=== PATIENT | female | born 2005 | race Caucasian/White ===

== ENCOUNTER 2023-10-24 12:14 | Emergency (ER) | payer MEDICAID ==
[~2023-10-24] VITALS: Ht 160 cm; Wt 60.5 kg
[2023-10-24 12:43] VITALS: TEMP 100.6
[2023-10-24 13:20] LABS: BILIRUBIN,URINE NEGATIVE (Neg); CLARITY,URINE CLEAR (Clear); COLOR,URINE YELLOW (Yellow); GLUCOSE, URINE NEGATIVE (Neg); KETONES,URINE 15 mg/dl (Neg); LEUKOCYTE ESTERASE ,URINE NEGATIVE (Neg); NITRITES, URINE NEGATIVE (Neg); OCCULT BLOOD,URINE SMALL (Neg); PROTEIN,URINE NEGATIVE (Neg); UROBILINOGEN,URINE 0.2 E.U/dL (0.2-1.0)
[2023-10-24 13:23] LABS: URINE HCG NEGATIVE (NEG)
[2023-10-24 13:32] LABS: UA COLLECTION TYPE CLN CATCH MIDSTREAM
[2023-10-24 13:33] LABS: BACTERIA,URINE NONE SEEN /HPF (Neg); MUCUS STRANDS FEW /LPF (Neg); RBC,URINE NONE SEEN /HPF (0-2); SQUAMOUS EPITHELIAL CELL,UR FEW /LPF (FEW); WBC,URINE 0-4 /HPF (0-4)
[2023-10-24 13:46] LABS: BASOPHILS % (AUTO) 0.3 % (0-1); EOSINOPHILS % (AUTO) 0.1 % (0-6); HEMATOCRIT 36.1 % (35.0-45.0); HEMOGLOBIN 11.8 g/dl (12.0-16.0); LYMPHOCYTES % (AUTO) 7.6 % (21-51); MEAN CORPUSCULAR HEMOGLOBIN 27.1 PG (27.0-31.0); MEAN CORPUSCULAR HGB CONC 32.6 g/dL (33.0-36.5); MEAN PLATELET VOLUME 7.8 FL (7.4-10.4); MONOCYTES # (AUTO) 0.8 X10'3 (0-0.9); MONOCYTES % (AUTO) 6.1 % (2-12); NEUTROPHILS % (AUTO) 85.9 % (42-75); PLATELET COUNT 270 X10'3 (140-440); RED BLOOD COUNT 4.35 X10'6 (4.20-5.60); RED CELL DISTRIBUTION WIDTH 14.6 % (11.5-14.5); WHITE BLOOD COUNT 12.8 X10'3 (4.5-11.0)
[2023-10-24 13:58] LABS: ALANINE AMINOTRANSFERASE 17 U/L (12-78); ALBUMIN 3.6 G/DL (3.4-5.0); ALBUMIN/GLOBULIN RATIO 0.8 (1.1-1.5); ALKALINE PHOSPHATASE 71 IU/L (20-180); ANION GAP 11 (8-16); ASPARTATE AMINO TRANSFERASE 12 U/L (10-37); BILIRUBIN,TOTAL 0.5 MG/DL (0.1-1.0); BLOOD UREA NITROGEN 8 MG/DL (7-18); BUN/CREATININE RATIO 12.9 (10.0-20.0); CALCIUM 9.2 MG/DL (8.5-10.1); CHLORIDE 105 MMOL/L (99-107); CREATININE 0.62 MG/DL (0.40-0.90); GLUCOSE 93 MG/DL (70-104); LIPASE 29 U/L (16-77); POTASSIUM 3.7 MMOL/L (3.5-5.1); SODIUM 140 MMOL/L (135-145); eCRCL 120 ML/MIN; eGFR > 90 ML/MIN
[2023-10-24] MEDS ORDERED: LIDOcaine 1% W/epiNEPHrine 1:200,000 10ml vial IJ STA (17:05)
[2023-10-24] MEDS: LIDOcaine 1% W/epiNEPHrine 1:100,000 20ml vial SQ ONE (17:36)
[2023-10-24] MEDS ORDERED: iohexol 300mg/ml 100ml inj. ONE (17:52)
[2023-10-24] MEDS: ondansetron/PF 4mg/2ml inj IV ONE (17:55)
[2023-10-24] MEDS: morphine 4 MG/ML inj SYRINge IV ONE (17:56)
[2023-10-24] MEDS: DOXYCYCLINE 100MG CAPSULE PO STA (19:43)
[2023-10-24] MEDS ORDERED: DOXY-1 PO (19:51)
[2023-10-24] MEDS: normal saline 1000ML IV soln IV ONE (19:55)
[2023-10-24] MEDS: CefTRIAXone 2gm/D5W 50ml BAG 50 ML IV ONE (19:59)
[2023-10-24] MEDS: HYDROcodone/acetaminophen 10/325mg tab PO ONE (21:13)
[2023-10-24 21:30] VITALS: BP 111/77; PULSE 92; RESP 18; O2SAT 99
[2023-10-25] MEDS ORDERED: HYDR-3965 PO (22:26)
[2023-10-25] MEDS ORDERED: ONDA-243 PO (22:26)
== END 2023-10-24 21:35 | disposition home or self-care (01) ==
LOC: ER 12:16
DX: L03.311 Cellulitis of abdominal wall (principal); Z79.2 Long term (current) use of antibiotics
CPT/HCPCS: 10060; 36415; 74177; 76857; 80053; 81001; 81025; 83690; 84145; 85025; 96365; 96375; 99285; A6266; J0696; J2270; J2405; J7030; Q9967; A6449

== ENCOUNTER 2023-10-25 21:43 | Emergency (ER) | payer MEDICAID ==
[~2023-10-25] VITALS: Ht 160 cm; Wt 62.0 kg
[~2023-10-25 21:43] MED LIST: DOXY-1 PO
[2023-10-25 22:09] LABS: BASOPHILS % (AUTO) 0.3 % (0-1); EOSINOPHILS % (AUTO) 0.2 % (0-6); HEMATOCRIT 33.5 % (35.0-45.0); HEMOGLOBIN 10.8 g/dl (12.0-16.0); LYMPHOCYTES # (AUTO) 0.7 X10'3 (1.1-4.8); MEAN CORPUSCULAR HEMOGLOBIN 26.5 PG (27.0-31.0); MEAN CORPUSCULAR HGB CONC 32.2 g/dL (33.0-36.5); MEAN CORPUSCULAR VOLUME 82.3 FL (78-98); MEAN PLATELET VOLUME 7.6 FL (7.4-10.4); MONOCYTES # (AUTO) 0.9 X10'3 (0-0.9); MONOCYTES % (AUTO) 5.8 % (2-12); NEUTROPHILS # (AUTO) 13.1 X10'3 (1.8-7.7); NEUTROPHILS % (AUTO) 88.7 % (42-75); PLATELET COUNT 261 X10'3 (140-440); RED BLOOD COUNT 4.08 X10'6 (4.20-5.60); RED CELL DISTRIBUTION WIDTH 14.4 % (11.5-14.5); WHITE BLOOD COUNT 14.7 X10'3 (4.5-11.0)
[2023-10-25 22:24] LABS: ALANINE AMINOTRANSFERASE 16 U/L (12-78); ALBUMIN 3.2 G/DL (3.4-5.0); ALBUMIN/GLOBULIN RATIO 0.8 (1.1-1.5); ALKALINE PHOSPHATASE 64 IU/L (20-180); ANION GAP 7 (8-16); ASPARTATE AMINO TRANSFERASE 15 U/L (10-37); BILIRUBIN,TOTAL 0.3 MG/DL (0.1-1.0); BLOOD UREA NITROGEN 8 MG/DL (7-18); CALCIUM 8.7 MG/DL (8.5-10.1); CHLORIDE 105 MMOL/L (99-107); CREATININE 0.57 MG/DL (0.40-0.90); GLUCOSE 105 MG/DL (70-104); LIPASE 24 U/L (16-77); POTASSIUM 3.5 MMOL/L (3.5-5.1); SODIUM 139 MMOL/L (135-145); TOTAL CARBON DIOXIDE 26.6 MMOL/L (24-32); TOTAL PROTEIN 7.4 G/DL (6.4-8.2); eCRCL 130 ML/MIN; eGFR > 90 ML/MIN
[2023-10-25] MEDS ORDERED: ketorolac trometh 30MG/ML vial 30 MG/ML VIAL IV ONE (22:25)
[2023-10-25] MEDS ORDERED: HYDR-3965 PO (22:26)
[2023-10-25] MEDS ORDERED: ONDA-243 PO (22:26)
[2023-10-25] MEDS: HYDROcodone/acetaminophen 10/325mg tab PO ONE (22:51)
[2023-10-25] MEDS: ondansetron 4mg rapidly disintigrating tab PO ONE (22:52)
[2023-10-25] MEDS: ketorolac trometh 30MG/ML vial 30 MG/ML VIAL IM ONE (23:01)
[2023-10-25 23:14] VITALS: BP 110/72; PULSE 99; RESP 16; TEMP 98.6; O2SAT 98
== END 2023-10-25 23:15 | disposition home or self-care (01) ==
LOC: ER 21:43
DX: N73.2 Unspecified parametritis and pelvic cellulitis (principal); Z79.2 Long term (current) use of antibiotics
CPT/HCPCS: 36415; 80053; 83690; 85025; 96372; 99283; J1885

== ENCOUNTER 2023-10-28 06:45 | Inpatient (IN) | payer MEDICAID ==
[~2023-10-28] VITALS: Ht 160 cm; Wt 51.9 kg
[2023-10-28] VITALS (17 sets, daily range): BP systolic 105–123; BP diastolic 63–87; PULSE 68–93; RESP 14–34; TEMP 97.8–98.5; O2SAT 98–100
[~2023-10-28 06:45] MED LIST changes: +HYDR-3965 PO; +ONDA-243 PO
[2023-10-28] MEDS: ketorolac trometh 30MG/ML vial 30 MG/ML VIAL IV ONE (08:40)
[2023-10-28 08:42] LABS: BASOPHILS # (AUTO) 0.1 X10'3 (0-0.2); BASOPHILS % (AUTO) 0.4 % (0-1); EOSINOPHILS # (AUTO) 0.2 X10'3 (0-0.9); EOSINOPHILS % (AUTO) 1.3 % (0-6); HEMATOCRIT 31.7 % (35.0-45.0); HEMOGLOBIN 10.2 g/dl (12.0-16.0); LYMPHOCYTES % (AUTO) 6.7 % (21-51); MEAN CORPUSCULAR HEMOGLOBIN 26.3 PG (27.0-31.0); MEAN CORPUSCULAR HGB CONC 32.2 g/dL (33.0-36.5); MEAN CORPUSCULAR VOLUME 81.9 FL (78-98); MEAN PLATELET VOLUME 7.6 FL (7.4-10.4); MONOCYTES # (AUTO) 1.1 X10'3 (0-0.9); MONOCYTES % (AUTO) 7.5 % (2-12); NEUTROPHILS # (AUTO) 12.2 X10'3 (1.8-7.7); NEUTROPHILS % (AUTO) 84.1 % (42-75); PLATELET COUNT 288 X10'3 (140-440); RED BLOOD COUNT 3.87 X10'6 (4.20-5.60); RED CELL DISTRIBUTION WIDTH 14.4 % (11.5-14.5); WHITE BLOOD COUNT 14.5 X10'3 (4.5-11.0)
[2023-10-28 09:02] LABS: ALANINE AMINOTRANSFERASE 18 U/L (12-78); ALBUMIN 2.9 G/DL (3.4-5.0); ALBUMIN/GLOBULIN RATIO 0.6 (1.1-1.5); ALKALINE PHOSPHATASE 78 IU/L (20-180); ANION GAP 8 (8-16); ASPARTATE AMINO TRANSFERASE 11 U/L (10-37); BILIRUBIN,TOTAL 0.3 MG/DL (0.1-1.0); BLOOD UREA NITROGEN 7 MG/DL (7-18); BUN/CREATININE RATIO 12.5 (10.0-20.0); CALCIUM 8.6 MG/DL (8.5-10.1); CHLORIDE 105 MMOL/L (99-107); CREATININE 0.56 MG/DL (0.40-0.90); GLUCOSE 91 MG/DL (70-104); POTASSIUM 3.5 MMOL/L (3.5-5.1); SODIUM 141 MMOL/L (135-145); TOTAL CARBON DIOXIDE 27.7 MMOL/L (24-32); TOTAL PROTEIN 7.4 G/DL (6.4-8.2); eCRCL 131 ML/MIN; eGFR > 90 ML/MIN
[2023-10-28 09:32] LABS: BETA HCG,QUANTITATIVE < 1.0 mIU/ml
[2023-10-28] MEDS: acetaminophen 1,000mg/100ml IV 100 ML IV ONE (11:43)
[2023-10-28] MEDS ORDERED: magnesium sulf-water 4G/100mL 100 ML IV PRN (14:30)
[2023-10-28] MEDS ORDERED: ondansetron/PF 4mg/2ml inj IV PRN ×3 (14:30→17:25)
[2023-10-28] MEDS ORDERED: magnesium sulf-water 2g/50mL 50 ML IV PRN (14:30)
[2023-10-28] MEDS ORDERED: potassium Cl 40MEQ/1/2NS 520ml 520 ML IV PRN (14:30)
[2023-10-28] MEDS ORDERED: acetaminophen 325mg tablet PO PRN (14:30)
[2023-10-28] MEDS ORDERED: mag hydrox/Alum hydrox/simeth 30ml oral suspension PO PRN (14:30)
[2023-10-28] MEDS ORDERED: magnesium Cl slow-release 64mg tablet PO PRN (14:30)
[2023-10-28] MEDS ORDERED: potassium Cl 20 mEq SR tablet PO PRN ×2 (14:30)
[2023-10-28] MEDS ORDERED: midazolam 1 mg/ML 2ml injection ONE (16:02)
[2023-10-28] MEDS ORDERED: fentaNYL/PF 50MCG/1 ML 2ML syringe ONE (16:02)
[2023-10-28] MEDS ORDERED: propofol inj 20 ML IV ONE (16:03)
[2023-10-28] MEDS ORDERED: CEFTRIAXONE IV ONE (16:03)
[2023-10-28] MEDS ORDERED: D5W IV ONE (16:03)
[2023-10-28] MEDS ORDERED: naloxone 0.4 mg/ml inj IV PRN (16:45)
[2023-10-28] MEDS ORDERED: meperidine/PF 25mg/ml syringe IV PRN ×2 (17:25)
[2023-10-28] MEDS ORDERED: morphine 4 MG/ML inj SYRINge IV PRN (17:25)
[2023-10-28] MEDS ORDERED: proCHLORperazine 10 MG/2 ml inj IV PRN (17:25)
[2023-10-28] MEDS ORDERED: morphine 2 MG/ML inj. syringe IV PRN (17:25)
[2023-10-28] MEDS: ringers solution, lacted 1,000 ML IV SCH (17:25)
[2023-10-28] MEDS: meperidine/PF 25mg/ml syringe IV PRN (17:31)
[2023-10-28] MEDS: normal saline 1000ml 1,000 ML IV SCH (18:17)
[2023-10-28] MEDS: ketorolac trometh 30MG/ML vial 30 MG/ML VIAL IV PRN (18:18)
[2023-10-28] MEDS: K and/or MAG REPLACEMENT MC SCH (20:00)
[2023-10-28] MEDS: docusate sod 100mg capsule PO SCH (20:20)
[2023-10-28] MEDS: HYDROcodone/acetaminophen 5mg/325mg tablet PO PRN (22:11)
[2023-10-29 02:33] VITALS: BP 99/65; PULSE 84; RESP 14; TEMP 98.8; O2SAT 98
[2023-10-29] MEDS: magnesium hydroxide 30ml (MOM) UD suspension PO PRN (02:50)
[2023-10-29 05:11] LABS: HEMOGLOBIN 8.5 g/dl (12.0-16.0); MEAN CORPUSCULAR VOLUME 81.5 FL (78-98); WHITE BLOOD COUNT 10.2 X10'3 (4.5-11.0)
[2023-10-29 05:12] LABS: BASOPHILS % (AUTO) 0.3 % (0-1); EOSINOPHILS # (AUTO) 0.2 X10'3 (0-0.9); EOSINOPHILS % (AUTO) 1.6 % (0-6); HEMATOCRIT 25.8 % (35.0-45.0); LYMPHOCYTES % (AUTO) 9.6 % (21-51); MEAN CORPUSCULAR HGB CONC 33.1 g/dL (33.0-36.5); MEAN PLATELET VOLUME 7.5 FL (7.4-10.4); MONOCYTES # (AUTO) 0.9 X10'3 (0-0.9); MONOCYTES % (AUTO) 8.5 % (2-12); NEUTROPHILS # (AUTO) 8.2 X10'3 (1.8-7.7); PLATELET COUNT 242 X10'3 (140-440); RED BLOOD COUNT 3.17 X10'6 (4.20-5.60); RED CELL DISTRIBUTION WIDTH 14.1 % (11.5-14.5)
[2023-10-29 05:26] LABS: ALANINE AMINOTRANSFERASE 15 U/L (12-78); ALBUMIN 2.2 G/DL (3.4-5.0); ALBUMIN/GLOBULIN RATIO 0.5 (1.1-1.5); ALKALINE PHOSPHATASE 61 IU/L (20-180); ANION GAP 6 (8-16); ASPARTATE AMINO TRANSFERASE 11 U/L (10-37); BILIRUBIN,TOTAL 0.2 MG/DL (0.1-1.0); BLOOD UREA NITROGEN 8 MG/DL (7-18); BUN/CREATININE RATIO 17.4 (10.0-20.0); CALCIUM 8.1 MG/DL (8.5-10.1); CHLORIDE 107 MMOL/L (99-107); CREATININE 0.46 MG/DL (0.40-0.90); GLUCOSE 86 MG/DL (70-104); MAGNESIUM 2.1 MG/DL (1.5-2.4); POTASSIUM 3.7 MMOL/L (3.5-5.1); SODIUM 139 MMOL/L (135-145); TOTAL CARBON DIOXIDE 25.7 MMOL/L (24-32); TOTAL PROTEIN 6.4 G/DL (6.4-8.2); eCRCL 160 ML/MIN; eGFR > 90 ML/MIN
[2023-10-29 06:00] VITALS: BP 110/77; PULSE 83; RESP 16; TEMP 98; O2SAT 97
[2023-10-29] MEDS: CefTRIAXone/D5W-Rocephin 1gm 50 ML IV SCH (08:36)
[2023-10-29 09:44] VITALS: RESP 14; O2SAT 99
[2023-10-29] MEDS: metroNIDAZOLE-Flagyl 500mg/NS 100 ML IV SCH (10:52)
[2023-10-29] MEDS ORDERED: METR-159 PO (13:02)
[2023-10-29] MEDS ORDERED: CIPR-202 PO (14:52)
[2023-10-29 15:33] VITALS: RESP 16
== END 2023-10-29 15:37 | disposition home or self-care (01) | DRG 720 ==
LOC: ER 06:45 → ED HOLD 13:57 → SUR 3N 18:07
PROVIDERS: ADMIT Family Medicine; ATTEND Family Medicine
PROC: 0J9C3ZZ Drainage of Pelvic Region Subcutaneous Tissue and Fascia, Percutaneous Approach (ICD-10-PCS; principal; 2023-10-28 16:03)
DX: A41.9 Sepsis, unspecified organism (principal); E43 Unspecified severe protein-calorie malnutrition; N73.0 Acute parametritis and pelvic cellulitis; L02.215 Cutaneous abscess of perineum; R16.2 Hepatomegaly with splenomegaly, not elsewhere classified; Z68.20 Body mass index [BMI] 20.0-20.9, adult
CPT/HCPCS: 36415; 80053; 83036; 83605; 83735; 84145; 84702; 85025; 87040; 87070; 87075; 87076; 87077; 87185; 87186; 99285; A4618; A6253; A6266; A6449; A7000; G0378; J0131; J0696; J1885; J2175; J2250; J2704; J3010; J3490; J7030; J7120